=== PATIENT | female | born 2000 | race Caucasian/White ===

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

== ENCOUNTER 2020-08-30 18:56 | Emergency (ER) | payer OTHER ==
[2020-08-30 20:07] VITALS: RESP 18
[2020-08-30] MEDS ORDERED: ONDANSETRON 4 MG/2 ML VIAL IVP STA (21:44)
[2020-08-30] MEDS ORDERED: ACETAMINOPHEN TAB 500 MG TAB PO STA (21:44)
[2020-08-30] MEDS ORDERED: KETOROLAC 15 MG/ML 1 ML VIAL IVP STA (21:44)
[2020-08-30] MEDS ORDERED: SODIUM CHLORIDE 0.9% 1,000 ML IV STA (21:44)
[2020-08-30] MEDS ORDERED: diphenhydrAMINE 50 MG/ML 1 ML VIAL IVP STA (21:44)
--- NOTE | 2020-08-30 22:47 | ED ---
Headache HPI - General Chief Complaint: Headache Stated Complaint: migraine & N&V Fever Time Seen by Provider: 08/30/20 21:33 Mode of arrival: ambulatory Limitations: no limitations - History of Present Illness Initial Comments: Patient is a 19-year-old female presenting to emergency Department with complaints of a headache since this morning. Patient is also complaining of so me nausea, vomiting and some lightheadedness. Patient states she was having some sinus congestion and thought she might have a sinus infection. She denies any abdominal pain, no coughing, no chest pain or shortness of breath. 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 Patient states she did have a fever today as well, she did take her migraine medicine but no Tylenol/Motrin. She does have history of migraines, this does feel like her typical migraine. She denies any falls or trauma. She denies and . She has no further complaints. Upon arrival to the ER, her temperature is 100.2, pulse is 113. - Related Data Previous Rx's Medication Instructions Recorded Ondansetron Odt [Zofran Odt] 4 mg PO Q8HR PRN #10 tab 08/30/20 Allergies Allergy/AdvReac Type Severity Reaction Status Date / Time No Known Allergies Allergy Verified 08/30/20 22:50 Review of Systems ROS Statement: Those systems with pertinent positive or pertinent negative responses have been documented in the HPI. ROS Other: All systems not noted in ROS Statement are negative. Past Medical History Past Medical History: No Reported History History of Any Multi-Drug Resistant Organisms: None Reported Past Surgical History: No Surgical Hx Reported Past Psychological History: No Psychological Hx Reported Smoking Status: Never smoker Past Alcohol Use History: None Reported Past Drug Use History: None Reported General Exam - General Exam Comments Initial Comments: GENERAL: Patient is well-developed and well-nourished. Patient is nontoxic and in no acute distress. HEAD: Atraumatic, normocephalic. EYES: Pupils equal round and reactive to light, extraocular movements intact, sclera anicteric, conjunctiva are normal. Eyelids were unremarkable. ENT: TMs normal, nares patent, oropharynx clear without exudates. Moist mucous membranes. NECK: Normal range of motion, supple without lymphadenopathy or JVD. LUNGS: Unlabored respirations. Breath sounds clear to auscultation bilaterally and equal. No wheezes rales or rhonchi. HEART: Regular rate and rhythm without murmurs, rubs or gallops. ABDOMEN: Soft, nontender, normoactive bowel sounds. No guarding, no rebound. No masses appreciated. : Deferred MUSCULOSKELETAL: Normal extremities with adequate strength and normal range of motion, no pitting or edema. No clubbing or cyanosis. NEUROLOGICAL: Patient is alert and oriented x 3. Motor and sensory are also intact. Cranial nerves II through XII grossly intact. Symmetrical smile. Normal speech, normal gait. PSYCH: Normal mood, normal affect. SKIN: Warm, Dry, normal turgor, no rashes or lesions noted. Limitations: no limitations Course Vital Signs 08/30/20 20:03 Temperature 100.2 F H Pulse Rate 113 H Respiratory 18 Rate Blood Pressure 109/72 O2 Sat by Pulse 99 Oximetry Medical Decision Making - Medical Decision Making Patient is a 19-year-old female presenting with a headache since this morning. She also had some nausea and vomiting, mild fever. She did not take any Tylenol or Motrin today. Her exam is unremarkable, she is slightly febrile 100.2. Rapid Covid is negative. Patient was given fluids, pain control and Tylenol. She does report improvement in her symptoms and is ready to be discharged home. Recommended to continue fluid intake, will send her home with some Zofran. I did discuss the patient that her symptoms are consistent with Covid infection even though her rapid today is negative. Patient is stable for discharge. Patient is in agreement with this plan of care. Return parameters were discussed with the patient and they verbalized understanding. Case discussed with Dr. Poe. - Lab Data Lab Results 08/30/20 Range/Units 20:08 Coronavirus (PCR) Not Detected (Not Detectd) Disposition Clinical Impression: Headache, Viral illness Disposition: HOME SELF-CARE Condition: Stable Instructions (If sedation given, give patient instructions): Acute Headache (ED) Additional Instructions: Please return to the Emergency Department if symptoms worsen or any other concerns. Continue to increase fluid intake. Take Tylenol or Motrin for fever or headache. Follow up with your PCP. Prescriptions: Ondansetron Odt [Zofran Odt] 4 mg PO Q8HR PRN #10 tab PRN Reason: Nausea Is patient prescribed a controlled substance at d/c from ED?: No Referrals: Phil Azul MD [Primary Care Provider] - 1-2 days Time of Disposition: 22:57
[2020-08-30 23:08] VITALS: PULSE 86
[2020-08-30 23:20] VITALS: BP 96/51; TEMP 99.1
== END 2020-08-30 23:17 | disposition home or self-care (01) ==
LOC: EC 18:56
DX: B34.9 Viral infection, unspecified (principal); Z20.822 Contact with and (suspected) exposure to COVID-19
CPT/HCPCS: 87635; 99283; 96374; 96375 ×2; 96361; J1200; J2405; J1885